=== PATIENT | male | born 1940 | race Asian ===

== ENCOUNTER 2024-06-10 08:18 | Emergency (ER) | payer OTHER, SELFPAY ==
--- NOTE | ~2024-06-10 | XR_ITS ---
EXAMINATION: XR chest 1V portable DATE: 06/10/2024 10:40 INDICATION: Cough. TECHNIQUE: A single frontal view of the chest was obtained. COMPARISON: Chest 2 views 08/26/2010 FINDINGS: There is mild atelectasis at left lung base. No pleural effusion or pneumothorax. The heart size is normal. IMPRESSION: 1. Mild atelectasis at left lung base. Reviewed, dictated and finalized at location A.
[2024-06-10 09:39] VITALS: BP 120/75; PULSE 75; RESP 16; TEMP 36.8; O2SAT 97
--- NOTE | 2024-06-10 10:02 | ED.GENADULT ---
HPI - General Adult General Chief complaint: Upper Respiratory Infection Stated complaint: I have COVID Time Seen by Provider: 06/10/24 09:04 History of Present Illness HPI narrative: Chandu Mike is an 84 y/o male who presents today wt reports of testing positive for covid 3 days ago and does not feel any better. He states sore throat / fever/ headache Denies shortness of breath / denies chest pain/ - he states he would like to be started on Paxlovid or remdesivir. Related Data Allergies Allergy/AdvReac Type Severity Reaction Status Date / Time Sulfa (Sulfonamide Allergy Mild Swelling Verified 06/10/24 09:43 Antibiotics) of Lip/Tongue/Throat valacyclovir Allergy Itching Verified 06/10/24 09:46 Review of Systems Review of Systems: All systems reviewed & are unremarkable except as noted in HPI and below Exam Narrative: GENERAL: Well-appearing, well-nourished, and in no acute distress. HEAD: Normocephalic, atraumatic. EYES: PERRLA and EOMI. ENT: Nares clear, no rhinorrhea or epistaxis. Mucous membranes moist. Oropharynx + erythema without tonsillar hypertrophy exudate or other lesions. NECK: Supple. No adenopathy or masses. No carotid bruits or JVD CHEST: Clear to auscultation. No respiratory distress. No wheezes rales or rhonchi HEART: Regular rate and rhythm. No murmur heard. Normal peripheral pulses. ABDOMEN: Soft, nontender, nondistended, normal active bowel sounds. EXTREMITIES: Normal range of motion. No edema. SKIN: Warm, dry, no rash. NEURO: No focal deficits. Alert and oriented x3. PSYCH: Normal mood and affect. Course Vital Signs Vital signs: Vital Signs Temperature 36.8 C 06/10/24 09:39 Pulse Rate 75 06/10/24 09:39 Respiratory Rate 16 06/10/24 09:39 Blood Pressure 120/75 06/10/24 09:39 Pulse Oximetry 97 06/10/24 09:39 Oxygen Delivery Room Air 06/10/24 09:39 Temperature 36.8 C 06/10/24 09:39 Pulse Rate 77 06/10/24 12:26 Respiratory Rate 16 06/10/24 12:26 Blood Pressure 110/79 06/10/24 12:26 Pulse Oximetry 97 06/10/24 12:26 Oxygen Delivery Room Air 06/10/24 09:44 Vitals reviewed by me. Medical Decision Making MDM Narrative Medical decision making narrative: 84 y/o here with reports of being Covid positive and inquiring about admission vs starting out pt remdesivir treatment or Paxlovid He is on Rosuvastatin and Eliquis Concern for : Covid pneumonia/ dehydration/ Viral syndrome Plan to check CBC/CMP / Chest XR and provide 1 L NS. CBC- hemodynamically stable CMP - Unremarkable Chest XR - Mild atelectasis at left lung base. Patient tolerating PO / lung santoyo clear to auscultation/ denies feeling SOB/ no chest pain Discussed case with Dr. Hurtado regarding policy with IV remdesivir vs Paxlovid and given the setting that he is stable he can hold his statin and start Paxlovid at home Close follow up wtih PCP Strict return precautions provided Discussed results with pt and plan of care, he is agreeable to plan and understands to return for any worsening symptoms Medical Records Medical records reviewed: Yes I reviewed the external patient's medical records. Vital Signs Vital Signs: Vital Signs Temperature 36.8 C 06/10/24 09:39 Pulse Rate 75 06/10/24 09:39 Respiratory Rate 16 06/10/24 09:39 Blood Pressure 120/75 06/10/24 09:39 Pulse Oximetry 97 06/10/24 09:39 Oxygen Delivery Room Air 06/10/24 09:39 Temperature 36.8 C 06/10/24 09:39 Pulse Rate 77 06/10/24 12:26 Respiratory Rate 16 06/10/24 12:26 Blood Pressure 110/79 06/10/24 12:26 Pulse Oximetry 97 06/10/24 12:26 Oxygen Delivery Room Air 06/10/24 09:44 Vitals reviewed by me. Lab Data Lab results reviewed: Yes I reviewed the patient's lab results. 06/10/24 10:14 06/10/24 10:14 Labs: Lab Results 06/10/24 Range/Units 10:14 WBC 5.7 (4.5-10.0) K/mm3 RBC 5.11 (4.6-6.20
[2024-06-10] MEDS: SODIUM CHLORIDE 0.9% IV 1,000 ML 999 ML IV CONT (10:13)
[2024-06-10 10:20] VITALS: BP 122/63; PULSE 70; RESP 19; O2SAT 95
[2024-06-10 10:23] LABS: Basophils Percent Auto 0.5 % (0.2-1.2); Eosinophils Percent Auto 0.7 % (0-4.4); Hematocrit 45.4 % (42.0-52.0); Hemoglobin 15.7 g/dL (14.0-18.0); Immature Granulocyte Absolute 0.02 K/mm3 (0.00-0.031); Immature Granulocyte Percent A 0.4 % (0-0.5); Lymphocytes Absolute Auto 0.89 K/mm3 (0.9-3.2); Lymphocytes Percent Auto 15.6 % (18.3-44.2); Mean Corpuscular HGB Conc 34.6 g/dl (32-36); Mean Corpuscular Hemoglobin 30.7 pg (26-34); Mean Corpuscular Volume 88.8 fl (80-100); Mean Platelet Volume 9.1 fl (7.4-10.4); Monocytes Absolute Auto 1.2 K/mm3 (0.1-0.6); Monocytes Percent Auto 20.7 % (2.6-8.5); Neutrophils Absolute Auto 3.5 K/mm3 (1.3-6.7); Neutrophils Percent Auto 62.1 % (45.5-73.1); Platelet Count Result 256 k/mm3 (150-375); Red Blood Count 5.11 M/mm3 (4.6-6.20); Red Cell Distribution Width 13.7 % (11.5-14.5); White Blood Count 5.7 K/mm3 (4.5-10.0)
[2024-06-10 10:35] LABS: Alanine Aminotransferase 11 U/L (6-50); Albumin Level 4.1 g/dL (3.5-5.1); Alkaline Phosphatase 66 U/L (38-126); Anion Gap 9 mmol/L (4-12); Aspartate Amino Transferase 21 U/L (17-59); Bilirubin,Total 1.1 mg/dL (0.2-1.3); Blood Urea Nitrogen 14 mg/dL (9-20); Calcium 8.5 mg/dL (8.4-10.2); Carbon Dioxide 23 mmol/L (22-30); Chloride 103 mmol/L (98-107); Estimated CRCL calculation 68 ml/min; Estimated Glomerular Filt Rate > 60; Glucose 99 mg/dL (65-110); Potassium 3.8 mmol/L (3.4-5.0); Sodium 135 mmol/L (137-145)
--- NOTE | 2024-06-10 12:20 | PC.NURSE ---
when going in to pt's room to pull out IV, pt had taken off Tegaderm and the IV catheter was senior care out pt states pull this out! told pt I just had to put gloves on and then I will removed the IV. after removing IV pt states I was neglected in here. asked pt why he felt that way. pt states, the provider told me I could leave, but I was left in here to do everything myself. stated to pt that I had to wait for the discharge paperwork to be completed before I could discharge him. when attempting to go over discharge paperwork pt interrupted and states yeah yeah I already got a message from pharmacy pt put on T shirt and walked out of ED.
[2024-06-10 12:26] VITALS: BP 110/79; PULSE 77; RESP 16; O2SAT 97
== END 2024-06-10 12:30 | disposition home or self-care (01) ==
PROVIDERS: Emergency Provider Nurse Practitioner Family
DX: U07.1 COVID-19 (principal)
CPT/HCPCS: 36415; 71045; 80053; 85025; 96360; 99283; J7030

== ENCOUNTER 2024-09-22 07:14 | Emergency (ER) | payer OTHER, SELFPAY ==
--- NOTE | ~2024-09-22 | XR_ITS ---
XR chest 2V Ordering provider: Jak Sosa MD History: 84 years Male with . CP VS INDIGESTION . Comparison: None. FINDINGS: MEDIASTINUM: The cardiac silhouette is not enlarged. LUNGS: No effusions or pneumothorax. Minimal opacification in the left lower lobe area which may charanjit joselo atelectasis versus early pneumonia. Follow-up advised. OTHER: No free air under the diaphragm. Degenerative the spine. IMPRESSION: Possible atelectasis in the left lower lobe. Reviewed, dictated and finalized at location A. V BELT COVERER
--- NOTE | 2024-09-22 07:19 | ECG_ITS ---
Test Date: 2024-09-22 07:22:01 Measurements Intervals [place] Rate: 69 P: 23 [place]: 191 QRS: -17 QRSD: 94 T: 54 QT: 390 QTc: 419 Interpretive Statements SINUS RHYTHM DELAYED PRECORDIAL R/S TRANSITION BORDERLINE T WAVE ABNORMALITY- ANTERIOR LEADS BASELINE ARTIFACT- V4 BORDERLINE ECG No previous ECG available for comparison Electronically Signed On 09-22-2024 08:10:25 PAYROLL COORDINATOR by Shashank Dalal D.O.
[2024-09-22 07:20] VITALS: BP 137/69; PULSE 66; RESP 11; TEMP 37.1; O2SAT 99
[2024-09-22 07:25] VITALS: PULSE 66
[2024-09-22 07:37] LABS: Basophils Percent Auto 0.5 % (0.2-1.2); Eosinophils Absolute Auto 0.1 K/mm3 (0-0.3); Eosinophils Percent Auto 2.9 % (0-4.4); Hematocrit 44.9 % (42.0-52.0); Hemoglobin 15.4 g/dL (14.0-18.0); Immature Granulocyte Absolute 0.01 K/mm3 (0.00-0.031); Immature Granulocyte Percent A 0.2 % (0-0.5); Lymphocytes Absolute Auto 1.13 K/mm3 (0.9-3.2); Lymphocytes Percent Auto 27.5 % (18.3-44.2); Mean Corpuscular HGB Conc 34.3 g/dl (32-36); Mean Corpuscular Hemoglobin 30.4 pg (26-34); Mean Corpuscular Volume 88.7 fl (80-100); Mean Platelet Volume 9.4 fl (7.4-10.4); Monocytes Absolute Auto 0.6 K/mm3 (0.1-0.6); Monocytes Percent Auto 13.6 % (2.6-8.5); Neutrophils Absolute Auto 2.3 K/mm3 (1.3-6.7); Neutrophils Percent Auto 55.3 % (45.5-73.1); Platelet Count Result 220 k/mm3 (150-375); Red Blood Count 5.06 M/mm3 (4.6-6.20); Red Cell Distribution Width 13.3 % (11.5-14.5); White Blood Count 4.1 K/mm3 (4.5-10.0)
[2024-09-22] MEDS: ASPIRIN 81 MG CHEWABLE TABLET 324 MG PO (07:38)
--- NOTE | 2024-09-22 07:43 | ED_ITS ---
HPI - General Adult General Chief complaint: Chest Pain Stated complaint: chest pain Time Seen by Provider: 09/22/24 07:19 History of Present Illness HPI narrative: 85-year-old male present to the emergency department for evaluation for epigastric pain. Patient states he felt he was having some indigestion this morning. Patient states the symptoms woke him from sleep. Patient denies any prior cardiac history. Patient has had a negative stress test. Patient does intermittently have issues with heartburn. Related Data Home Medications Medication Instructions Recorded Confirmed diazepam 10 mg tablet 10 mg PO PRN 09/22/24 09/22/24 donepezil 5 mg tablet 5 mg PO DAILY 09/22/24 09/22/24 ergocalciferol (vitamin D2) 1,250 50,000 unit PO WEEKLY 09/22/24 09/22/24 mcg (50,000 unit) capsule propafenone 150 mg tablet 150 mg PO TID 09/22/24 09/22/24 Allergies Allergy/AdvReac Type Severity Reaction Status Date / Time Sulfa (Sulfonamide Allergy Mild Swelling Verified 09/22/24 07:25 Antibiotics) of Lip/Tongue/Throat Review of Systems Review of Systems: All systems reviewed & are unremarkable except as noted in HPI and below Course Course Emergency Course: Patient did not want to wait for his delta troponin and wished to sign out. Vital Signs Vital signs: Vital Signs Temperature 98.7 F 09/22/24 07:20 Pulse Rate 66 09/22/24 07:20 Respiratory Rate 11 L 09/22/24 07:20 Blood Pressure 137/69 09/22/24 07:20 Pulse Oximetry 99 09/22/24 07:20 Oxygen Delivery Room Air 09/22/24 07:20 Temperature 98.7 F 09/22/24 07:20 Pulse Rate 66 09/22/24 10:01 Respiratory Rate 19 09/22/24 10:01 Blood Pressure 128/71 09/22/24 10:00 Pulse Oximetry 98 09/22/24 10:01 Oxygen Delivery Room Air 09/22/24 07:20 Medical Decision Making [facility] Narrative Medical decision making narrative: 84-year-old male presents emergency department for evaluation for epigastric pain. Patient suspects that this is more GI related. Patient's EKG showed right bundle with no evidence of acute STEMI. Patient was afebrile with no leukocytosis and hemoglobin of 15.4. INR is 1.2. Patient has no acute abnormalities on his CMP and had negative troponin. Chest x-ray showed possible atelectasis but no evidence of pneumonia. When it was time to recheck the patient's EKG and troponin the patient declined. Patient states he does feel improved. Patient was treated with IV from and IV Protonix. Patient was encouraged to have close follow-up with his primary care physician for additional outpatient cardiac testing. Patient was also advised to start taking omeprazole. Differential Diagnosis Differential Diagnosis: Gastritis, colitis, ulcer, ACS Vital Signs Vital Signs: Vital Signs Temperature 98.7 F 09/22/24 07:20 Pulse Rate 66 09/22/24 07:20 Respiratory Rate 11 L 09/22/24 07:20 Blood Pressure 137/69 09/22/24 07:20 Pulse Oximetry 99 09/22/24 07:20 Oxygen Delivery Room Air 09/22/24 07:20 Temperature 98.7 F 09/22/24 07:20 Pulse Rate 66 09/22/24 10:01 Respiratory Rate 19 09/22/24 10:01 Blood Pressure 128/71 09/22/24 10:00 Pulse Oximetry 98 09/22/24 10:01 Oxygen Delivery Room Air 09/22/24 07:20 Lab Data Lab results reviewed: Yes I reviewed the patient's lab results. 09/22/24 07:31 09/22/24 07:31 Labs: Lab Results 09/22/24 09/22/24 Range/Units 07:31 10:02 WBC 4.1 L (4.5-10.0) K/mm3 RBC 5.06 (4.6-6.20) M/mm3 Hgb 15.4 (14.0-18.0) g/dL Hct 44.9 (42.0-52.0) % MCV 88.7 (80-100) fl MCH 30.4 (26-34) pg MCHC 34.3 (32-36) g/dl RDW 13.3 (11.5-14.5) % Plt Count 220 (150-375) k/mm3 MPV 9.4 (7.4-10.4) fl Immature Gran % (Auto) 0.2 (0-0.5) % Neut % (Auto) 55.3 (45.5-73.1) % Lymph % (Auto) 27.5 (18.3-44.2) % [place] % (Auto) 13.6 H (2.6-8.5) % Eos % (Auto) 2.9 (0-4.4) % Baso % (Auto) 0.5 (0.2-1.2) % Lymph # (Auto) 1.13 (0.9-3.2) K/mm3 [place] # (Auto) 0.6 (0.1-0.6) K/mm3 Eos # (Auto) 0.1 (0-0.3) K/mm3 Baso # (Auto) 0.0 (0.0-0.1) K/mm3 Abs Immat Gran (auto) 0.01 (0.00-0.031) K/mm3 Absolute Neuts (auto) 2.3 (1.3-6.7) K/mm3 Absolute Nucleated RBC 0.000 (0.0-0.012) K/mm3 Nucleated RBC % 0.0 (0.0-0.2) % PT 15.1 H (11.1-14.7) Seconds INR 1.2 APTT 33.0 (22.3-36.8) Seconds Sodium 136 L (137-145) mmol/L Potassium 3.7 (3.4-5.0) mmol/L Chloride 102 (98-107) mmol/L Carbon Dioxide 28 (22-30) mmol/L Anion Gap 6 (4-12) mmol/L BUN 16 (9-20) mg/dL Creatinine 0.80 (0.7-1.3) mg/dL Estim Creat Clear Calc 54 ml/min Estimated GFR > 60 (59 - ) Glucose 99 (65-110) mg/dL Calcium 8.7 (8.4-10.2) mg/dL Total Bilirubin 1.2 (0.2-1.3) mg/dL AST 22 (17-59) U/L ALT 15 (6-50) U/L Alkaline Phosphatase 61 (38-126) U/L Troponin I < 0.012 < 0.012 (0.000-0.034) ng/mL Total Protein 8.0 (6.3-8.2) g/dL Albumin 4.1 (3.5-5.1) g/dL Lipase 86 (23-300) U/L Discharge Plan Discharge Clinical Impression: Epigastric abdominal pain, Atypical chest pain Patient Disposition: Home, Self-Care Condition: Stable Instructions: Antibiotic Form, Chest Pain (ED), Diet for Stomach Ulcers and Gastritis (ED) Additional Instructions: You declined your repeat EKG and troponin. Have close follow-up with your primary care physician. You may also benefit from follow-up with GI. I do recommend taking omeprazole daily for the next 14 days. If you have any worsening symptoms or if you have any questions or concerns then please call or return to the emergency department Prescriptions: No Action propafenone 150 mg tablet 150 mg PO TID donepezil 5 mg tablet 5 mg PO DAILY ergocalciferol (vitamin D2) 1,250 mcg (50,000 unit) capsule 50,000 unit PO WEEKLY diazepam 10 mg tablet 10 mg PO PRN Follow-up/Referrals: UNKNOWN,DOCTOR [Primary Care Provider] - Quality HEART score for chest pain patients History: slightly suspicious ECG: normal Age: > or = to 65 years Risk factors: 1 or 2 risk factors Troponin: < or = to 1x normal limit Heart score: 3
[2024-09-22 07:50] LABS: INR 1.2; Prothrombin Time 15.1 Seconds (11.1-14.7)
[2024-09-22 07:55] LABS: Alanine Aminotransferase 15 U/L (6-50); Albumin Level 4.1 g/dL (3.5-5.1); Alkaline Phosphatase 61 U/L (38-126); Anion Gap 6 mmol/L (4-12); Aspartate Amino Transferase 22 U/L (17-59); Bilirubin,Total 1.2 mg/dL (0.2-1.3); Blood Urea Nitrogen 16 mg/dL (9-20); Calcium 8.7 mg/dL (8.4-10.2); Carbon Dioxide 28 mmol/L (22-30); Chloride 102 mmol/L (98-107); Estimated CRCL calculation 54 ml/min; Estimated Glomerular Filt Rate > 60; Glucose 99 mg/dL (65-110); Potassium 3.7 mmol/L (3.4-5.0); Sodium 136 mmol/L (137-145)
[2024-09-22] MEDS: FAMOTIDINE 20 MG/2 ML VIAL IV PUSH (07:55)
[2024-09-22] MEDS: PANTOPRAZOLE SODIUM IV 40 MG VIAL IV PUSH (07:55)
[2024-09-22 08:10] LABS: Troponin I < 0.012 ng/mL (0.000-0.034)
[2024-09-22 09:15] VITALS: BP 118/74; PULSE 61; RESP 17; O2SAT 99
[2024-09-22 10:00] VITALS: BP 128/71; PULSE 63; RESP 15; O2SAT 99
[2024-09-22 10:01] VITALS: PULSE 66; RESP 19; O2SAT 98
--- NOTE | 2024-09-22 10:09 | PC.NURSE ---
Pt refusing 3 hour Trop and EKG
[2024-09-22 10:47] LABS: Troponin I < 0.012 ng/mL (0.000-0.034)
[2024-09-22 14:23] LABS: Lipase 86 U/L (23-300)
== END 2024-09-22 10:16 | disposition home or self-care (01) ==
PROVIDERS: Emergency Provider Emergency Medicine
DX: R10.13 Epigastric pain (principal); R07.89 Other chest pain; R94.31 Abnormal electrocardiogram [ECG] [EKG]
CPT/HCPCS: 36415; 71046; 80053; 83690; 84484; 85025; 85610; 85730; 93005; 96374; 96375; 99284; A9270; J2470

== ENCOUNTER 2024-10-23 09:41 | Emergency (ER) | payer OTHER, SELFPAY ==
--- NOTE | ~2024-10-23 | XR_ITS ---
EXAMINATION: XR chest 2V DATE: 10/23/2024 10:30 INDICATION: Chest pain TECHNIQUE: PA and lateral views of the chest were obtained. COMPARISON: Chest radiograph dated 09/22/2024 FINDINGS: Mild streaky bibasilar atelectasis/scarring. The previously new airspace opacities in the left lower lung zone have resolved. No pulmonary edema, pleural effusion or pneumothorax. The cardiomediastinal silhouette is normal. Mild thoracic dextrocurvature with mild to moderate spondylosis. IMPRESSION: 1. Mild streaky bibasilar atelectasis/scarring. Reviewed, dictated and finalized at location A. ITY SPRAY OPERATOR
--- NOTE | 2024-10-23 09:43 | ECG_ITS ---
Test Date: 2024-10-23 09:55:20 Measurements Intervals [place] Rate: 78 P: 43 [place]: 187 QRS: -12 QRSD: 94 T: 29 QT: 385 QTc: 441 Interpretive Statements SINUS RHYTHM NONSPECIFIC ST AND T-WAVE ABNORMALITY Compared to ECG 09/22/2024 07:22:01 NO SIGNIFICANT CHANGES Electronically Signed On 10-24-2024 11:50:56 BRAND ATTENDANT by Mata Bennett M.D.
[2024-10-23 09:46] VITALS: BP 137/75; PULSE 82; RESP 16; TEMP 36.4; O2SAT 96
--- NOTE | 2024-10-23 09:59 | ED_ITS ---
HPI - Chest Pain General Chief Complaint: Chest Pain Stated Complaint: chest pain Time Seen by Provider: 10/23/24 09:44 History of Present Illness HPI narrative: Patient is an 84-year-old male who presents ER with chest pain. Substernal. . reports it is a discomfort. No radiation. No exertional component. No nausea or vomiting. No association with eating or drinking. Denies fevers or chills or sweats. No history of heart disease. Has follow-up with a PCP tomorrow. Related Data Home Medications ?Medication ?Instructions ?Recorded ?Confirmed ?Last Taken ?Type diazepam 10 mg tablet 10 mg PO PRN 09/22/24 09/22/24 Unknown History donepezil 5 mg tablet 5 mg PO DAILY 09/22/24 09/22/24 Unknown History ergocalciferol (vitamin D2) 1,250 50,000 unit PO WEEKLY 09/22/24 09/22/24 Unknown History mcg (50,000 unit) capsule propafenone 150 mg tablet 150 mg PO TID 09/22/24 09/22/24 Unknown History Allergies Allergy/AdvReac Type Severity Reaction Status Date / Time Sulfa (Sulfonamide Allergy Mild Swelling Verified 10/23/24 10:56 Antibiotics) of Lip/Tongue/Throat Review of Systems 2 Review of Systems: All systems reviewed & are unremarkable except as noted in HPI and below Constitutional: Constitutional: Reports no additional constitutional complaints ENT: Reports system reviewed and no additional complaints, except as documented Cardiovascular: Cardiovascular: Reports no additional cardiovascular complaints Respiratory: Respiratory: Reports no additional respiratory complaints Gastrointestinal: Gastrointestinal: Reports no additional gastrointestinal complaints PMFSH Past Medical History Medical History (Updated 10/23/24 @ 11:42 by Marcial Nieves MD) Hyperlipidemia Afib Surgical History Surgical History (Updated 10/23/24 @ 11:38 by Marcial Nieves MD) No history of previous surgery Exam 2 Narrative: GENERAL: Well-appearing, well-nourished, and in no acute distress. HEAD: Normocephalic, atraumatic. ENT: Mucous membranes moist. CHEST: Clear to auscultation. No respiratory distress. HEART: Regular rate and rhythm. No murmur heard. Normal peripheral pulses. ABDOMEN: Soft, nontender, nondistended. EXTREMITIES: Normal range of motion. No edema. SKIN: Warm, dry, no rash. NEURO: Alert and oriented x3. PSYCH: Normal mood and affect. Course Course Emergency Course: patient resting comfortably. Symptoms improved with Mylanta. Discussed lab work. Patient feels comfortable with discharge home. Lipase slightly elevated but no epigastric pain. Recommend bland diet. Vital Signs Vital signs: Vital Signs Temperature 97.6 F 10/23/24 09:46 Pulse Rate 82 10/23/24 09:46 Respiratory Rate 16 10/23/24 09:46 Blood Pressure 137/75 10/23/24 09:46 Pulse Oximetry 96 10/23/24 09:46 Temperature 97.6 F 10/23/24 09:46 Pulse Rate 82 10/23/24 09:46 Respiratory Rate 16 10/23/24 09:46 Blood Pressure 137/75 10/23/24 09:46 Pulse Oximetry 96 10/23/24 09:46 MDM - Chest Pain Lab Data 10/23/24 09:57 10/23/24 09:57 Labs: Lab Results 10/23/24 Range/Units 09:57 WBC 4.5 (4.5-10.0) K/mm3 RBC 5.13 (4.6-6.20) M/mm3 Hgb 15.2 (14.0-18.0) g/dL Hct 45.3 (42.0-52.0) % MCV 88.3 (80-100) fl MCH 29.6 (26-34) pg MCHC 33.6 (32-36) g/dl RDW 13.3 (11.5-14.5) % Plt Count 227 (150-375) k/mm3 MPV 9.4 (7.4-10.4) fl Immature Gran % (Auto) 0.2 (0-0.5) % Neut % (Auto) 50.6 (45.5-73.1) % Lymph % (Auto) 34.3 (18.3-44.2) % [place] % (Auto) 12.2 H (2.6-8.5) % Eos % (Auto) 2.0 (0-4.4) % Baso % (Auto) 0.7 (0.2-1.2) % Lymph # (Auto) 1.55 (0.9-3.2) K/mm3 [place] # (Auto) 0.6 (0.1-0.6) K/mm3 Eos # (Auto) 0.1 (0-0.3) K/mm3 Baso # (Auto) 0.0 (0.0-0.1) K/mm3 Abs Immat Gran (auto) 0.01 (0.00-0.031) K/mm3 Absolute Neuts (auto) 2.3 (1.3-6.7) K/mm3 Absolute Nucleated RBC 0.000 (0.0-0.012) K/mm3 Nucleated RBC % 0.0 (0.0-0.2) % PT 14.7 (11.1-14.7) Seconds INR 1.1 APTT 34.5 (22.3-36.8) Seconds Sodium 138 (137-145) mmol/L Potassium 3.3 L (3.4-5.0) mmol/L Chloride 106 (98-107) mmol/L Carbon Dioxide 27 (22-30) mmol/L Anion Gap 5 (4-12) mmol/L BUN 17 (9-20) mg/dL Creatinine 0.70 (0.7-1.3) mg/dL Estim Creat Clear Calc 72 ml/min Estimated GFR > 60 (59 - ) Glucose 96 (65-110) mg/dL Calcium 8.6 (8.4-10.2) mg/dL Total Bilirubin 1.5 H (0.2-1.3) mg/dL AST 23 (17-59) U/L ALT 15 (6-50) U/L Alkaline Phosphatase 67 (38-126) U/L Troponin I < 0.012 (0.000-0.034) ng/mL Total Protein 7.0 (6.3-8.2) g/dL Albumin 4.2 (3.5-5.1) g/dL Lipase 580 H (23-300) U/L Imaging Data Radiologist's impression: ITS Impressions Chest X-Ray 10/23/24 10:49 IMPRESSION: 1. Mild streaky bibasilar atelectasis/scarring. ECG Data EKG #1: ECG completion date: 10/23/24 ECG completion time: 09:55 EKG Interpretation: normal rate (78), sinus rhythm, no ST changes, normal QRS, normal QT and NL axis Discharge Plan Discharge Clinical Impression: Chest pain Patient Disposition: Home, Self-Care Condition: Stable Instructions: Chest Pain (ED) Additional Instructions: Please return to the emergency department if you develop severe and persistent chest pain, difficulty breathing, dizziness, leg swelling or if you are coughing up blood as these can be signs of a medical emergency. Please call your doctor for a follow up appointment to determine the need for further testing. Patient Language: Hebrew Prescriptions: No Action propafenone 150 mg tablet 150 mg PO TID donepezil 5 mg tablet 5 mg PO DAILY ergocalciferol (vitamin D2) 1,250 mcg (50,000 unit) capsule 50,000 unit PO WEEKLY diazepam 10 mg tablet 10 mg PO PRN Follow-up/Referrals: UNKNOWN,DOCTOR [Primary Care Provider] - 1 Day Quality HEART score for chest pain patients History: slightly suspicious ECG: normal Age: > or = to 65 years Risk factors: 1 or 2 risk factors Troponin: < or = to 1x normal limit Heart score: 3
[2024-10-23 10:16] LABS: Basophils Percent Auto 0.7 % (0.2-1.2); Eosinophils Absolute Auto 0.1 K/mm3 (0-0.3); Hematocrit 45.3 % (42.0-52.0); Hemoglobin 15.2 g/dL (14.0-18.0); Immature Granulocyte Absolute 0.01 K/mm3 (0.00-0.031); Immature Granulocyte Percent A 0.2 % (0-0.5); Lymphocytes Absolute Auto 1.55 K/mm3 (0.9-3.2); Lymphocytes Percent Auto 34.3 % (18.3-44.2); Mean Corpuscular HGB Conc 33.6 g/dl (32-36); Mean Corpuscular Hemoglobin 29.6 pg (26-34); Mean Corpuscular Volume 88.3 fl (80-100); Mean Platelet Volume 9.4 fl (7.4-10.4); Monocytes Absolute Auto 0.6 K/mm3 (0.1-0.6); Monocytes Percent Auto 12.2 % (2.6-8.5); Neutrophils Absolute Auto 2.3 K/mm3 (1.3-6.7); Neutrophils Percent Auto 50.6 % (45.5-73.1); Platelet Count Result 227 k/mm3 (150-375); Red Blood Count 5.13 M/mm3 (4.6-6.20); Red Cell Distribution Width 13.3 % (11.5-14.5); White Blood Count 4.5 K/mm3 (4.5-10.0)
[2024-10-23 10:27] LABS: INR 1.1; Partial Thromboplastin Time 34.5 Seconds (22.3-36.8); Prothrombin Time 14.7 Seconds (11.1-14.7)
[2024-10-23 10:29] LABS: Alanine Aminotransferase 15 U/L (6-50); Albumin Level 4.2 g/dL (3.5-5.1); Alkaline Phosphatase 67 U/L (38-126); Anion Gap 5 mmol/L (4-12); Aspartate Amino Transferase 23 U/L (17-59); Bilirubin,Total 1.5 mg/dL (0.2-1.3); Blood Urea Nitrogen 17 mg/dL (9-20); Calcium 8.6 mg/dL (8.4-10.2); Carbon Dioxide 27 mmol/L (22-30); Chloride 106 mmol/L (98-107); Estimated CRCL calculation 72 ml/min; Estimated Glomerular Filt Rate > 60; Glucose 96 mg/dL (65-110); Lipase 580 U/L (23-300); Potassium 3.3 mmol/L (3.4-5.0); Sodium 138 mmol/L (137-145)
[2024-10-23 10:41] LABS: Troponin I < 0.012 ng/mL (0.000-0.034)
[2024-10-23] MEDS: ASPIRIN 81 MG CHEWABLE TABLET 324 MG PO (10:55)
--- NOTE | 2024-10-23 11:15 | PC.NURSE ---
patient refused the GI cocktail and just took the Mylanta. Provider aware
[2024-10-23] MEDS: MAG HYDROX/AL HYDROX/SIMETH 30 ML UDC PO (11:17)
[2024-10-23 12:14] VITALS: BP 121/69; PULSE 68; RESP 16; O2SAT 97
== END 2024-10-23 12:17 | disposition home or self-care (01) ==
PROVIDERS: Emergency Provider Emergency Medicine
DX: R07.9 Chest pain, unspecified (principal); E78.5 Hyperlipidemia, unspecified; I48.91 Unspecified atrial fibrillation
CPT/HCPCS: 36415; 71046; 80053; 83690; 84484; 85025; 85610; 85730; 93005; 99284; A9270

== ENCOUNTER 2025-06-16 08:29 | Emergency (ER) | payer MEDICARE, SELFPAY ==
--- NOTE | ~2025-06-16 | XR_ITS ---
EXAMINATION: XR chest 1V portable 06/16/2025 09:14 INDICATION: Chest pain PROCEDURE: AP portable chest COMPARISON: 10/23/2024 FINDINGS: The lungs are clear. The cardiomediastinal silhouette is within normal limits. There are no pleural effusions. There is no pneumothorax suspected. There is atherosclerosis and ectasia of t he thoracic aorta. IMPRESSION: 1: NO ACUTE CARDIOPULMONARY DISEASE. Reviewed, dictated and finalized at location A.
[2025-06-16 08:36] VITALS: BP 133/71; PULSE 75; RESP 16; TEMP 36.4; O2SAT 98
--- NOTE | 2025-06-16 08:36 | ECG_ITS ---
Test Date: 2025-06-16 08:38:58 Measurements Intervals [place] Rate: 73 P: 28 [place]: 180 QRS: -13 QRSD: 86 T: 60 QT: 380 QTc: 419 Interpretive Statements SINUS RHYTHM NORMAL ECG Compared to ECG 10/23/2024 09:55:20 NO SIGNIFICANT CHANGE Electronically Signed On 06-16-2025 08:48:02 CDT by Shashank Dalal D.O.
--- OUTSIDE RECORDS SUMMARY | 2025-06-16 08:42 | XMS_ITS | Clinical Summary ---
Author Organization [facility] [address] [place] [id number] Care Team Providers Care Distance Education Teacher Name Role Phone Jewel Tyler MD Primary Care Provider [phone] Allergies Active Allergy Reactions Criticality Noted Date Comments Sulfa (Sulfonamide Antibiotics) Angioedema Reaction: swollen lips, Medications acyclovir (ZOVIRAX) 400 mg tablet Take 1 tablet (400 mg total) by mouth 2 (two) times a day Active rosuvastatin (CRESTOR) 20 mg tablet Take 1 tablet (20 mg total) by mouth daily 90 tablet 3 10/16/2024 Active propafenone (RYTHMOL) 150 mg tablet TAKE 1 TABLET BY MOUTH EVERY 8 HOURS. 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 Overview (02/08/2017): MIXED HYPERLIPIDEMIA Encounters Date Type Department Care Team Description 04/06/2025 Telephone [facility] Line at [address] [place] [phone] Deborah Hernandez MA from Last 3 Months Social History Tobacco Use Types Packs/Day Years Used Date Smoking Tobacco: Never Smokeless Tobacco: Never Tobacco Cessation:Counseling Given: Not Answered Sex and Gender Information Value Date Recorded Sex Assigned at Not on file Legal Sex Male 1:35 AM REIN[employer]CING [employer] Gender Identity Not on file Sexual Orientation Not on file Obstetrics History Last Filed Vital Signs Vital Sign Reading Time Taken Comments Blood Pressure 132/79 10/16/2024 9:23 AM REINFORCING ROD LAYER Pulse 68 10/16/2024 9:23 AM REINFORCING ROD LAYER Temperature - - Respiratory Rate 18 10/16/2024 9:23 AM REINFORCING ROD LAYER Oxygen Saturation - - Inhaled Oxygen Concentration - - Weight 68.9 kg (152 lb) 10/16/2024 9:23 AM REINFORCING ROD LAYER Height 177.8 cm (5' 10) 10/16/2024 9:23 AM REINFORCING ROD LAYER Body Mass Index 21.81 10/16/2024 9:23 AM REINFORCING ROD LAYER Plan of Treatment Health Maintenance Due Date Last Done Comments Depression Screening 1942 Fall Risk Assessment 1942 DTaP/Tdap/Td Vaccine (1 - Tdap) 1953 Hepatitis B Screening 1960 Pneumococcal vaccine 65+ (1 of 1 - PCV) 1992 Well Visit 65+ 2007 Zoster Vaccine (2 of 2) 09/17/2021 07/23/2021 Covid-19 Vaccine ( - season) 2024 06/20/2021, 11/23/2020, 11/02/2020 Influenza Vaccine (#1) 2025 08/10/2020 Insurance [employer] CHO[employer] PPO Care Teams Distance Education Teacher Relationship Specialty Start Date End Date Jewel Tyelr MD [id number] [facility] [address] [place] [address] PCP - General Internal Medicine 05/22/23
--- OUTSIDE RECORDS SUMMARY | 2025-06-16 08:42 | XMS_ITS | Clinical Summary ---
Author Organization [facility] Address [address] [place] [address] Care Team Providers Care Systems Software Manager Name Role Phone Unknown, Provider Primary Care Provider Unavaila ble Source Comments [facility],non-owned Affiliates and Associated Physician Practices is amultiple site organization consisting of ambulatory clinics and hospital sitesin [place], [place], [place] and [place]. This disclosure is being madepursuant to the Care Everywhere program and may not contain all information available regarding this patient. Last updated 18.[facility] Allergies Active Allergy Reactions Criticality Noted Date Comments Sulfacetamide Rash Medium 07/29/2024 Medications * Be aware that medications may not be up to date on this document. Alwaysverify current medications with the patient. propafenone (Rythmol) 150 MG tablet Take 1 (one) tablet by mouth every 8 hours Active Active Problems Problem Noted Date Diagnosed Date Irregular heart beat 07/29/2024 Neck pain 07/29/2024 Family History Medical History Relation Name Comments Cancer Brother Cancer Father Heart Failure Father Cancer Mother Cancer - Stomach Mother Cancer Sister Relation Name Status Comments Brother Father Mother Sister Social History Tobacco Use Types Packs/Day Years Used Date Smoking Tobacco: Never Smokeless Tobacco: Never Tobacco Cessation:Counseling Given: Not Answered Alcohol Use Standard Drinks/Week Comments Not Currently 1 (1 standard drink = 0.6 oz pur e alcohol) quit ( special ocassion0. 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 Gender Identity Not on file Sexual Orientation Not on file Last Filed Vital Signs Vital Sign Reading Time Taken Comments Blood Pressure - - Pulse - - Temperature - - Respiratory Rate - - Oxygen Saturation - - Inhaled Oxygen Concentration - - Weight 72.6 kg (160 lb) 2025 9:13 AM CDT Height 165 cm (5' 4.96) 2025 9:13 AM CDT Body Mass Index 26.66 2025 9:13 AM CDT Plan of Treatment Health Maintenance Due Date Last Done Comments MEDICARE AWV 12 MONTHS 1942 DTAP/TDAP/TD VACCINES (1 - Tdap) 1961 PNEUMOCOCCAL VACCINE 50+ (1 of 1 - PCV) 1992 ZOSTER VACCINE (1 of 2) 1992 Respiratory Syncytial Virus (RSV) Vaccine Pt: or over 60 yrs (1 - 1-dose 75+ series) 2017 COVID-19 VACCINE ( - 2023-2 5 season) 2024 DEPRESSION SCREENING 11/05/2024 INFLUENZA VACCINE (#1) 2025 HEPATITIS B VACCINE Aged Out No longe r eligible based on patient's age to complete this topic HIB VACCINE Aged Out No longer eligi ble based on patient's age to complete this topic HPV VACCINE Aged Out No longer eligi ble based on patient's age to complete this topic MENINGOCOCCAL (Group B) VACC INE SHARED DECISION-MAKING Aged Out No longer eligibl e based on patient's age to complete this topic MENINGOCOCCAL GROUPS A/C/Y/W VACCINE Aged Out No longer eligible b ased on patient's age to complete this topic Insurance [facility] MEDICARE ADV PPO Care Teams Systems Software Manager Relationship Specialty Start Date End Date Unknown, Provider PCP - General 08/11/24
--- OUTSIDE RECORDS SUMMARY | 2025-06-16 08:43 | XMS_ITS | Clinical Summary ---
Author Organization [facility] Address [address] [place] [address] Care Team Providers Care American Sign Language Teacher Name Role Phone Unavailable Primary Care Provider Unavailabl e Encounters Date Type Department Care Team Description 05/20/2025 External Device Data [facility] ABSTRACTION Provider, Abstract 05/20/2025 External Device Data [facility] ABSTRACTION Provider, Abstract 05/20/2025 External Device Data [facility]STRACTION Provider, Abstract 05/19/2025 External Device Data [facility]STRACTION Provider, Abstract 04/21/2025 External Device Data [facility] ABSTRACTION Provider, Abstract 03/31/2025 External Device Data [facility] ABSTRACTION Provider, Abstract 03/26/2025 External Device Data [facility] ABSTRACTION Provider, Abstract 03/25/2025 External Device Data [facility] ABSTRACTION Provider, Abstract 03/24/2025 External Device Data [facility] ABSTRACTION Provider, Abstract from Last 3 Months Social History Tobacco Use Types Packs/Day Years Used Date Smoking Tobacco: Never Assessed Sex and Gender Information Value Date Recorded Sex Assigned at Not on file 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
[2025-06-16 08:46] VITALS: BP 127/72; PULSE 78; PULSE 82; RESP 14; O2SAT 96
[2025-06-16 08:55] LABS: Hematocrit 47.2 % (42.0-52.0); Hemoglobin 16.0 g/dL (14.0-18.0); Immature Granulocyte Percent A 0.2 % (0-0.5); Lymphocytes Absolute Auto 1.40 K/mm3 (0.9-3.2); Mean Corpuscular HGB Conc 33.9 g/dl (32-36); Mean Corpuscular Hemoglobin 29.6 pg (26-34); Mean Corpuscular Volume 87.2 fl (80-100); Nucleated Red Blood Cells Absolute Auto 0.000 K/mm3 (0.0-0.012); Nucleated Red Blood Cells Perc 0.0 % (0.0-0.2); Platelet Count Result 238 k/mm3 (150-375); Red Blood Count 5.41 M/mm3 (4.6-6.20); White Blood Count 4.8 K/mm3 (4.5-10.0)
[2025-06-16] MEDS: ASPIRIN 81 MG CHEWABLE TABLET 324 MG PO (08:56)
[2025-06-16] MEDS: NITROGLYCERIN OINTMENT 1 INCH DOSE 0.5 INCH TRANSDERM (08:56)
--- NOTE | 2025-06-16 08:58 | ED_ITS ---
HPI - Chest Pain General Chief Complaint: Chest Pain Stated Complaint: chest pain since this am Time Seen by Provider: 06/16/25 08:45 History of Present Illness HPI narrative: Pt presents with dull aching chest pain this morning for about 1 hr that has not resolved. Pt denies precipitating or relieving factors. Pt denies radiation of CP or SOB or nausea. Pt has history of intermittent a fib but not on anticoagulation. Pt has no history of CAD and no history of similar symptoms. Pt says pain is nearly resolved now. Related Data Home Medications ?Medication ?Instructions ?Recorded ?Confirmed ?Last Taken ?Type diazepam 10 mg tablet 10 mg PO PRN 09/22/24 09/22/24 Unknown History donepezil 5 mg tablet 5 mg PO DAILY 09/22/24 09/22/24 Unknown History ergocalciferol (vitamin D2) 1,250 50,000 unit PO WEEKLY 09/22/24 09/22/24 Unknown History mcg (50,000 unit) capsule propafenone 150 mg tablet 150 mg PO TID 09/22/24 09/22/24 Unknown History Allergies Allergy/AdvReac Type Severity Reaction Status Date / Time Sulfa (Sulfonamide Allergy Mild Swelling Verified 06/16/25 08:45 Antibiotics) of Lip/Tongue/Throat Review of Systems 2 Review of Systems: All systems reviewed & are unremarkable except as noted in HPI and below PMFSH Past Medical History Medical History (Updated 06/16/25 @ 09:29 by Kvng Miller III, DO) Hyperlipidemia Afib Surgical History Surgical History (Updated 10/23/24 @ 11:38 by Marcial Nieves MD) No history of previous surgery Exam 2 Const: General: healthy appearing and no acute distress Nutritional Appearance: well nourished Orientation/consciousness: patient oriented x3 Limitations: no limitations HENMT: Head: normal to inspection Eyes: EOM: EOMs intact bilaterally Neck: Neck: normal visual inspection Chest: Chest palpation & inspection: normal inspection of the chest Resp: Effort & Inspection: normal respiratory effort Auscultation: clear to auscultation bilaterally Cardio: Rate: regular rate Rhythm: regular rhythm GI: GI Palp: Yes Soft to palpation and No Tenderness to palpation present (GI) Auscultation: normal bowel sounds Back/Spine/Pelvis: Back: no CVA tenderness Skin: General skin exam: normal color Rashes: no rashes Wounds: no wounds Neuro: General: patient oriented x3, moves all extremities and no focal motor deficits Speech: normal speech Extrem: General: normal to inspection and no clubbing, cyanosis or edema Psych: Mental Status: mental status grossly normal Affect: normal affect Attitude: cooperative Course Vital Signs Vital signs: Vital Signs Temperature 97.6 F 06/16/25 08:36 Pulse Rate 75 06/16/25 08:36 Respiratory Rate 16 06/16/25 08:36 Blood Pressure 133/71 06/16/25 08:36 Pulse Oximetry 98 06/16/25 08:36 Oxygen Delivery Room Air 06/16/25 08:36 Temperature 97.9 F 06/16/25 09:31 Pulse Rate 71 06/16/25 09:31 Respiratory Rate 13 06/16/25 09:31 Blood Pressure 109/68 06/16/25 09:31 Pulse Oximetry 96 06/16/25 09:31 Oxygen Delivery Room Air 06/16/25 08:46 MDM - Chest Pain MDM Narrative Medical decision making narrative: Pt presents wth dull anterior chest pain for about an hour. Pain almost gone now. Will need to rule out acs with two trops and ekg and clinical rehab liaison. will give asa and nitro paste 0.5. Pt first trop neg and labs ok. Pt did not want to stay for second trop. advised that could still be cardiac and nsemi and pt could have AR and and pt still wants to sign out ama. Pt is capable of making informed decision so will allow to sign out ama. Differential Diagnosis Differential diagnosis: Likely pneumothorax, unstable angina pectoris, atypical chest pain, st elevation myocardial infarction and costochondritis Lab Data 06/16/25 08:44 06/16/25 08:44 Labs: Lab Results 06/16/25 Range/Units 08:44 WBC 4.8 (4.5-10.0) K/mm3 RBC 5.41 (4.6-6.20) M/mm3 Hgb 16.0 (14.0-18.0) g/dL Hct 47.2 (42.0-52.0) % MCV 87.2 (80-100) fl MCH 29.6 (26-34) pg MCHC 33.9 (32-36) g/dl RDW 13.0 (11.5-14.5) % Plt Count 238 (150-375) k/mm3 MPV 9.1 (7.4-10.4) fl Immature Gran % (Auto) 0.2 (0-0.5) % Neut % (Auto) 57.0 (45.5-73.1) % Lymph % (Auto) 28.9 (18.3-44.2) % [place] % (Auto) 11.6 H (2.6-8.5) % Eos % (Auto) 1.7 (0-4.4) % Baso % (Auto) 0.6 (0.2-1.2) % Lymph # (Auto) 1.40 (0.9-3.2) K/mm3 [place] # (Auto) 0.6 (0.1-0.6) K/mm3 Eos # (Auto) 0.1 (0-0.3) K/mm3 Baso # (Auto) 0.0 (0.0-0.1) K/mm3 Abs Immat Gran (auto) 0.01 (0.00-0.031) K/mm3 Absolute Neuts (auto) 2.8 (1.3-6.7) K/mm3 Absolute Nucleated RBC 0.000 (0.0-0.012) K/mm3 Nucleated RBC % 0.0 (0.0-0.2) % PT 14.7 (11.1-14.7) Seconds INR 1.1 APTT 33.2 (22.3-36.8) Seconds Sodium 137 (137-145) mmol/L Potassium 4.0 (3.4-5.0) mmol/L Chloride 104 (98-107) mmol/L Carbon Dioxide 24 (22-30) mmol/L Anion Gap 9 (4-12) mmol/L BUN 22 H (9-20) mg/dL Creatinine 0.92 (0.7-1.3) mg/dL Estim Creat Clear Calc 50 ml/min Estimated GFR > 60 (59 - ) Glucose 100 (65-110) mg/dL Calcium 9.3 (8.4-10.2) mg/dL Total Bilirubin 1.2 (0.2-1.3) mg/dL AST 30 (17-59) U/L ALT 16 (6-50) U/L Alkaline Phosphatase 59 (38-126) U/L Troponin I < 0.012 (0.000-0.034) ng/mL Total Protein 7.9 (6.3-8.2) g/dL Albumin 4.4 (3.5-5.1) g/dL Lipase 103 (23-300) U/L Discharge Plan Discharge Clinical Impression: Chest pain Patient Disposition: Left Against Medical Advice Condition: Improved Instructions: Angina (ED), Chest Pain (ED) Patient Language: Azeri Prescriptions: No Action propafenone 150 mg tablet 150 mg PO TID donepezil 5 mg tablet 5 mg PO DAILY ergocalciferol (vitamin D2) 1,250 mcg (50,000 unit) capsule 50,000 unit PO WEEKLY diazepam 10 mg tablet 10 mg PO PRN Follow-up/Referrals: UNKNOWN,DOCTOR [Primary Care Provider] - Quality HEART score for chest pain patients History: moderately suspicious ECG: normal Age: > or = to 65 years Risk factors: 1 or 2 risk factors Troponin: < or = to 1x normal limit Heart score: 4
[2025-06-16 09:01] VITALS: BP 110/68; PULSE 76; RESP 13; O2SAT 95
[2025-06-16 09:02] LABS: Alanine Aminotransferase 16 U/L (6-50); Albumin Level 4.4 g/dL (3.5-5.1); Alkaline Phosphatase 59 U/L (38-126); Anion Gap 9 mmol/L (4-12); Aspartate Amino Transferase 30 U/L (17-59); Bilirubin,Total 1.2 mg/dL (0.2-1.3); Blood Urea Nitrogen 22 mg/dL (9-20); Calcium 9.3 mg/dL (8.4-10.2); Carbon Dioxide 24 mmol/L (22-30); Chloride 104 mmol/L (98-107); Estimated CRCL calculation 50 ml/min; Estimated Glomerular Filt Rate > 60; Glucose 100 mg/dL (65-110); Lipase 103 U/L (23-300); Potassium 4.0 mmol/L (3.4-5.0); Sodium 137 mmol/L (137-145); Total Protein 7.9 g/dL (6.3-8.2)
--- OUTSIDE RECORDS SUMMARY | 2025-06-16 09:03 | XMS_ITS | Clinical Summary ---
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
--- OUTSIDE RECORDS SUMMARY | 2025-06-16 09:03 | XMS_ITS | Clinical Summary ---
Author Organization [facility] Address [address] [place] [address] Care Team Providers Care Director Regulatory Agency Name Role Phone Unknown, Provider Primary Care Provider Unavaila ble Source Comments [facility],non-owned Affiliates and Associated Physician Practices is amultiple site organization consisting of ambulatory clinics and hospital sitesin [place], [place], [place] and [place]. This disclosure is being madepursuant to the Care Everywhere program and may not contain all information available regarding this patient. 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
--- OUTSIDE RECORDS SUMMARY | 2025-06-16 09:03 | XMS_ITS | Clinical Summary ---
Author Organization [facility] [address] [place] [id number] Care Team Providers Care Optical Systems Engineer Name Role Phone Jewel Tyler MD Primary Care Provider [phone] Allergies Active Allergy Reactions Criticality Noted Date [...] Type Department Care Team Description 04/06/2025 Telephone [place] [employer] at [address] [place] [id number] Deborah Hernandez MA from Last 3 Months Social History Tobacco Use Types Packs/Day Years Used Date Smoking Tobacco: Never Smokeless Tobacco: Never Tobacco Cessation:Counseling Given: Not Answered Sex and Gender Information Value Date Recorded Sex Assigned at Not on file 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 Gender Identity Not on file Sexual Orientation Not on file Obstetrics History Last Filed Vital Signs Vital Sign Reading Time Taken Comments Blood Pressure 132/79 10/16/2024 9:23 AM TUBE PULLER Pulse 68 10/16/2024 9:23 AM TUBE PULLER Temperature - - Respiratory Rate 18 10/16/2024 9:23 AM TUBE PULLER Oxygen Saturation - - Inhaled Oxygen Concentration - - Weight 68.9 kg (152 lb) 10/16/2024 9:23 AM TUBE PULLER Height 177.8 cm (5' 10) 10/16/2024 9:23 AM TUBE PULLER Body Mass Index 21.81 10/16/2024 9:23 AM TUBE PULLER Plan of Treatment Health Maintenance Due Date Last Done Comments Depression Screening 1942 Fall Risk Assessment 1942 DTaP/Tdap/Td Vaccine (1 - Tdap) 1953 Hepatitis B Screening 1960 Pneumococcal vaccine 65+ (1 of 1 - PCV) 1992 Well Visit 65+ 2007 Zoster Vaccine (2 of 2) 09/17/2021 07/23/2021 Covid-19 Vaccine ( - season) 2024 06/20/2021, 11/23/2020, 11/02/2020 Influenza Vaccine (#1) 2025 08/10/2020 Insurance [employer] ADVANTAGE CHOICE PPO Care Teams Optical Systems Engineer Relationship Specialty Start Date End Date Jewel Tyler MD [phone] [place] [address] PCP - General Internal Medicine 05/22/23
[2025-06-16 09:13] LABS: Troponin I < 0.012 ng/mL (0.000-0.034)
[2025-06-16 09:17] VITALS: PULSE 71; RESP 12; O2SAT 95
[2025-06-16 09:17] LABS: INR 1.1; Partial Thromboplastin Time 33.2 Seconds (22.3-36.8); Prothrombin Time 14.7 Seconds (11.1-14.7)
[2025-06-16 09:31] VITALS: BP 109/68; PULSE 71; RESP 13; TEMP 36.6; O2SAT 96
== END 2025-06-16 09:35 | disposition left against medical advice (07) ==
PROVIDERS: Emergency Provider Emergency Medicine
DX: R07.9 Chest pain, unspecified (principal); E78.5 Hyperlipidemia, unspecified; I48.91 Unspecified atrial fibrillation
CPT/HCPCS: 36415; 71045; 80053; 83690; 84484; 85025; 85610; 85730; 93005; 99284; A9270